=== PATIENT | female | born 1990 | race Caucasian/White ===

== ENCOUNTER 2025-03-16 09:32 | Outpatient (CLI) | payer BC, SELFPAY ==
[2025-03-16 15:27] LABS: Chlamydia DNA Amplified* NOT DETECTED (No Detected); GC DNA Amplified* NOT DETECTED (No Detected)
[2025-03-18 05:13] LABS: HPV Source Cervix
[2025-03-21 10:13] LABS: Pap Test Digital Imaging Done; Pap Test Reviewed by Pathologi Done
== END 2025-03-16 09:33 | disposition home or self-care (01) ==
PROVIDERS: PCP Family Medicine; Visit Provider Registered Nurse
DX: Z12.4 Encounter for screening for malignant neoplasm of cervix (principal); Z11.3 Encounter for screening for infections with a predominantly sexual mode of transmission
CPT/HCPCS: 87491; 87591; 87624; 87625; 88141; 88142; 88175

== ENCOUNTER 2025-03-21 08:22 | Outpatient (CLI) | payer BC, SELFPAY | END 2025-03-21 08:23 | disposition home or self-care (01) | LOC: NFLDREF 03-24 18:49 | PROVIDERS: PCP Family Medicine; Referring Provider Family Medicine; Visit Provider Registered Nurse | DX: Z13.9 Encounter for screening, unspecified (principal) | CPT/HCPCS: 80061; 82947 ==